=== PATIENT | female | born 1985 | race Caucasian/White ===

== ENCOUNTER 2017-01-09 16:19 | Observation (INO) | payer OTHER ==
[~2017-01-09] VITALS: Ht 157.5 cm; Wt 85.9 kg
[~2017-01-09 16:19] MED LIST: ALBUTEROL17 GM IH; ENDOCET 5-3251 EACH PO; Motrin PO; PULMICORT1 MG/2 ML IH; Pulmicort 180 microg IH; RHINOCORT AQUA8.6 G1 IH; SINGULAIR5 MG PO; Singulair PO; ULTRAM50 MG PO; ZOFRAN ODT4 MG PO; ZyrTEC PO
[2017-01-09 17:27] LABS: HEMATOCRIT 44.8 % (36.0-46.0); MCH 29.4 PG (29.0-34.0); MCHC 34.2 G/DL (30.0-36.0); MCV 86.2 FL (83-99); MEAN PLAT.VOLUME 11.1 uM^3 (9.5-12.4); PLATELET COUNT 228 K/uL (156-360); RBC DIS.WIDTH-SD 37.6 % (39-53)
[2017-01-09 17:42] LABS: CHLORIDE 102 mEq/L (99-109); SODIUM 137 mEq/L (136-147)
[2017-01-09 17:44] LABS: GLUCOSE 115 mg/dL (70-99)
[2017-01-09 17:45] LABS: ANION GAP 10 MEQ/L (2-14)
[2017-01-09 17:46] LABS: TOTAL BILIRUBIN 0.6 mg/dL (0.0-1.0)
[2017-01-09 17:48] LABS: ALKALINE PHOSPHATASE 90 IU/L (3-129); GFR ESTIMATE (CALCULATED) > 59 mL/min/
[2017-01-09 17:49] LABS: UREA NITROGEN (BUN) 9 mg/dL (9-23)
[2017-01-09 17:50] LABS: QUANTITATIVE HCG < 4.0 MIU/ML
[2017-01-09 17:51] LABS: LIPASE 13 U/L (1.0-51.0)
[2017-01-09 19:21] LABS: ADD MIUA? NO; BILIRUBIN NEGATIVE; BLOOD NEGATIVE; COLOR COLORLESS ((YELLOW)); GLUCOSE (STRIP) NEGATIVE; KETONES NEGATIVE; LEUKOCYTES NEGATIVE; NITRITE NEGATIVE; PROTEIN (STRIP) NEGATIVE; SPECIFIC GRAVITY 1.003 (1.000-1.030); UCUL ADDED? NO; UROBILINOGEN 0.2 MG/DL (0.2-1.0)
[2017-01-09] MEDS ORDERED: PROAIR HFA8.5 GM IH (22:04)
[2017-01-09] MEDS ORDERED: ZYRTEC10 M3 PO (22:04)
[2017-01-09] MEDS ORDERED: VITAMIN D-3 401 EACH PO (22:05)
[2017-01-09] MEDS ORDERED: KENALOG,ARISTOC80 GM TP (22:06)
[2017-01-09] MEDS ORDERED: ALLERGY INJECTION (22:07)
[2017-01-09] MEDS ORDERED: FLONASE16 G1 BOTH NARES (22:08)
[2017-01-09] MEDS ORDERED: QVAR 80 MCG IN7.3 GM IH (22:08)
[2017-01-10 02:30] VITALS: BP 103/63
[2017-01-10 03:32] VITALS: BP 103/68
[2017-01-10 07:00] VITALS: BP 110/68
[2017-01-10 12:32] VITALS: BP 126/83
[2017-01-10] MEDS ORDERED: NORCO 5/3251 TABLET PO (12:32)
== END 2017-01-10 15:00 | disposition home or self-care (01) ==
LOC: EME 16:19 → EDOF 22:17 → 2EAST 22:17 → ENRESERV 22:19 → 2EAST 01-10 02:13
PROC: 0DTJ4ZZ Resection of Appendix, Percutaneous Endoscopic Approach (ICD-10-PCS; principal; 2017-01-09)
DX: K35.80 Unspecified acute appendicitis (principal); J45.909 Unspecified asthma, uncomplicated; Z98.51 Tubal ligation status
CPT/HCPCS: 71020; 74177; 80053; 81003; 83690; 84702; 85027; 88304; 90686; 94640; 99281; 99285; G0378; J0330; J1100; J1170; J1650; J2270; J2405; J2710; J3010; J3480; J7030; J7120; S0020